=== PATIENT | female | born 2000 | race Caucasian/White ===

== ENCOUNTER → 2021-09-13 16:37 | Outpatient (CLI) | payer OTHER, SELFPAY ==
[2021-09-13 20:47] LABS: Urine N gonorrhoeae NOT DETECTED
[2021-09-13 21:09] LABS: Urine Chlamydia NOT DETECTED
== END ==
PROVIDERS: Visit Provider Obstetrics & Gynecology
DX: Z34.01 Encounter for supervision of normal first pregnancy, first trimester (principal)
CPT/HCPCS: 87491; 87591

== ENCOUNTER → 2021-11-26 11:55 | Outpatient (CLI) | payer OTHER, SELFPAY ==
--- NOTE | 2021-11-26 11:56 | DI.US.S_ITS ---
PROCEDURE: US OB >= 14 WEEKS FETUS INDICATIONS: Anatomy Scan OUTSIDE/PRIOR DATING DATA: Last menstrual period (LMP): 07/12/2021 LMP-based estimated date of delivery (LAURENCE): 04/18/2022. First dating scan (date and location): 09/13/2021. Estimated date of delivery (LAURENCE) from first dating scan: 04/16/2022. The calculations are made using the ultrasound LAURENCE of 04/16/2022. TECHNIQUE: Real-time scanning was performed of the fetus, with image documentation and biometric measurements. COMPARISON: [facility], , US OB <= 14 WEEKS FETUS, 09/13/2021, 16:39. FINDINGS: General: A single living intrauterine gestation is present. Presentation: Vertex. Placenta: Placental position is posterior , without previa. Amniotic fluid index: 11.2 cm, normal range is 5-24 cm. heart rate: 147 beats per minute. Maternal cervical canal: 3.2 cm long. Normal lower limit is 2.5 cm. biometrics: Biparietal diameter: 21 weeks 2 days Head circumference: 20 weeks 2 day Abdominal circumference: 20 weeks 5 days Femur length: 20 weeks 1 day Clinically estimated gestational age: 19 weeks 6 days Composite gestational age from present scan: 20 weeks 4 days Estimated weight and percentile: 356 g; 80th percentile Anatomic survey: Neuro: Ventricles are non-dilated at less than 10 mm. Cisterna magna is normal at 3-11 mm. Cerebellum is normal in size and morphology. Nuchal skin fold: Normal at less than 6 mm between 14-21 weeks gestational age. Face: Suboptimally visualized. Spine: No evidence for spina bifida. Heart: 4-chambered heart is present, with normal ventricular outflow tracts. Diaphragm: Diaphragm is intact. Stomach: Left-sided stomach is present. Kidneys: No hydronephrosis. Normal is less than 5 mm in 2nd trimester, less than 7 mm in 3rd trimester. Cord: 3-vessel cord has orthotopic insertion. Bladder: Normal in size. Extremities: All 4 extremities identified. IMPRESSION: 1. Single living IUP redemonstrated and interval growth is normal. 2. face suboptimally visualized; otherwise normal anatomic survey. We strive to produce accurate, complete, and clear reports of imaging services. To assist us in improving patient care, this report was composed using standard report templates and voice recognition software. Therefore, it may contain abnormal punctuation, insertions and/or omissions. Occasional wrong-word or sound-alike substitutions may occur. Though we review the report and make efforts to correct it, we do recommend that the report be read carefully in proper context to recognize any text inaccuracies. Dictated by: Ricci PURI Interpreted: April Chavez MD on 11/26/2021 at 13:52 Transcribed by: ELIANA on 11/26/2021 at 13:57 Approved by: April Chavez M.D. on 11/26/2021 at 15:19
== END ==
PROVIDERS: Referring Provider Obstetrics & Gynecology; Visit Provider Obstetrics & Gynecology
DX: Z36.89 Encounter for other specified antenatal screening (principal); Z3A.20 20 weeks gestation of pregnancy
CPT/HCPCS: 76811

== ENCOUNTER → 2021-12-25 12:33 | Outpatient (CLI) | payer OTHER, SELFPAY ==
--- NOTE | 2021-12-25 12:35 | DI.US.S_ITS ---
PROCEDURE: US OB LIMITED INDICATIONS: RE-EVALUATE FACIAL STRUCTURES OUTSIDE/PRIOR DATING DATA: Last menstrual period (LMP): 07/12/2021 LMP-based estimated date of delivery (LAURENCE): 04/18/2022 First dating scan (date and location): 09/13/2021 Estimated date of delivery (LAURENCE) from first dating scan: 04/16/2022 TECHNIQUE: Real-time scanning was performed of the fetus, with image documentation. Endovaginal scanning: Not performed COMPARISON: 11/26/2021 FINDINGS: A single living intrauterine gestation is present. Presentation: Vertex Placenta: Posterior Amniotic fluid index: 15.5 centimeters heart rate: 149 beats per minute Maternal cervical canal: 3.2 centimeters Clinically estimated gestational age: 24 weeks Nose/lips, orbits are well seen. Profile view remains suboptimal due to positioning. IMPRESSION: Profile view remains suboptimally seen due to positioning. Nose/lips and orbits appear normal. Living intrauterine gestation at 24 weeks of gestational age based on prior dating. Dictated by: Mark Godfrey M.D. on 12/25/2021 at 13:42 Approved by: Mark Godfrey M.D. on 12/25/2021 at 13:45
== END ==
PROVIDERS: Referring Provider Obstetrics & Gynecology; Visit Provider Obstetrics & Gynecology
DX: Z36.2 Encounter for other antenatal screening follow-up (principal); Z3A.24 24 weeks gestation of pregnancy
CPT/HCPCS: 76815

== ENCOUNTER 2022-01-09 17:48 | Outpatient (CLI) | payer OTHER, SELFPAY ==
--- NOTE | 2022-01-09 18:28 | DI.US.S_ITS ---
PROCEDURE: US OB LIMITED INDICATIONS: cervical lenth OUTSIDE/PRIOR DATING DATA: Last menstrual period (LMP): July 12, 2021. LMP-based estimated date of delivery (LAURENCE): April 18, 2022. First dating scan (date and location): September 13, 2021. Estimated date of delivery (LAURENCE) from first dating scan: April 16, 2022. TECHNIQUE: Real-time scanning was performed of the fetus, with image documentation. Endovaginal scanning: Performed for measurement of cervical canal length COMPARISON: [facility], OB LIMITED, 12/25/2021, 13:06. FINDINGS: A single living intrauterine gestation is present. Presentation: Cephalic. Placenta: Placental position is posterior, without previa. Amniotic fluid index: 11.9 cm, normal range is 5-24 cm. Single deepest vertical pocket is 3.9 cm. heart rate: 153 beats per minute. Maternal cervical canal: 3.9 cm long. Normal lower limit is 2.5 cm. Maternal cervical length was measured endovaginally. Clinically estimated gestational age: 26 weeks and 1 day IMPRESSION: Single living intrauterine gestation with estimated gestational age of approximately 26 weeks and 1 day. Maternal cervical length measures 3.9 cm (endovaginal measurement) Four-quadrant VINEET measuring 11.9 cm with largest vertical pocket measuring 3.9 cm. Dictated by: Mateo Owens M.D. on 01/09/2022 at 19:12 Approved by: Mateo Owens M.D. on 01/09/2022 at 19:14
--- NOTE | 2022-01-09 19:09 | PM.OBTRLD ---
Visit Information Visit Information Date of evaluation: 01/09/22 Primary OB Provider: Lois Ojeda On-call OB Provider: Lois Ojeda Reason for Evaluation: Yes other Comments/Additional reasons for admission: 21 yo G1 brought in at 25wk6d due to persistent cramping after intercourse earlier today. She hydrated and rested, but cramping has persisted. She reports severe cramping starting about 1/2 hour after intercourse. Cramping was much more than usual which concerned her from the start. she rated the discomfort as going as high as 7 on a pain scale of 10. Cramping persisted despite hydrating and getting off her feet For 2 hours. She was brought in for evaluation. She denies any leakage of fluid or vaginal bleeding. No recent illness. No urinary symptoms. She reported feeling a little dizzy today, clarifies just off balance, no lightheadedness or room spinning. No noted fever. [facility] Medical History (Updated 10/11/21 @ 12:31 by Rosita Alvarado PA-C) Acne (~2011) Allergies (~2000) Anemia (~2013) Anxiety (~2013) Asthma (~2000) Autism (~2000) Celiac disease (~2017) Chronic back pain (~2012) COVID-19 Frequent UTI (~2016) Generalized hypermobility of joints Heavy menstrual period (~2014) Kidney stones (~2020) Knee dislocation (~2013) Microcytic hypochromic anemia Migraines (~2014) PTSD (post-traumatic stress disorder) (~2017) Tourette's disease (~2004) Velopharyngeal insufficiency (~2020) Surgical History (Updated 10/10/21 @ 22:57 by Nidhi Cordova) Anesthesia complication History of endoscopy (~2018) History of knee surgery (~03/2021) History of tonsillectomy (~2020) [place] teeth extracted (~2015) Family History (Updated 10/10/21 @ 22:59 by Nidhi Cordova) Grandfather Prostate cancer Grandmother Diabetes mellitus Hypertension Mental health problem Father Hypertension History of heart disease Family/Other Down syndrome Social History marital status: number of children: 0 household members: spouse lives independently: Yes housing: apartment pets and animals: Yes (1 cat, managing litter box) education level: college (some college) occupational status: employed current occupational exposures/hazards: No special sandip needs: No travel history: over 6 months ago seatbelt use: always helmet use: Yes water heater temp set < 120 deg: Yes working smoke detector in home: Yes fire extinguisher in home: Yes carbon monox detector in home: Yes firearms in home: Yes firearms unloaded and locked: Yes do you feel safe at home: Yes Smoking Status: Never smoker second hand exposure: No alcohol intake: never substance use type: marijuana (previously used topical THC cream for pain, no longer using) during the past year weight has: other (major fluctuations, max 180, min 100) well-balanced diet: daily or most days daily servings fruits/ve-4 caffeine: No (Quit recently) Type(s) of exercise: walking Objective Imaging US transvaginal: Radiologist's impression: PROCEDURE:? US OB LIMITED ? INDICATIONS:? cervical lenth ? OUTSIDE/PRIOR DATING DATA:? Last menstrual period (LMP):? July 12, 2021.? LMP-based estimated date of delivery (LAURENCE):? April 18, 2022.? First dating scan (date and location):? September 13, 2021.? Estimated date of delivery (LAURENCE) from first dating scan:? April 16, 2022. ? TECHNIQUE: Real-time scanning was performed of the fetus, with image documentation.? Endovaginal scanning:? Performed for measurement of cervical canal length ? COMPARISON:? [facility], OB LIMITED, 12/25/2021, 13:06. ? FINDINGS:? A single living intrauterine gestation is present.? Presentation:? Cephalic.? Placenta:? Placental position is posterior, without previa.? ? Amniotic fluid index:? 11.9 cm, normal range is 5-24 cm. Single deepest vertical pocket is 3.9 cm.? ? heart rate:? 153 beats per minute.? Maternal cervical canal:? 3.9 cm long.? Normal lower limit is 2.5 cm.? Maternal cervical length was measured endovaginally.? Clinically estimated gestational age:? 26 weeks and 1 day ? IMPRESSION:? ? Single living intrauterine gestation with estimated gestational age of approximately 26 weeks and 1 day. ? Maternal cervical length measures 3.9 cm (endovaginal measurement) ? Four-quadrant VINEET measuring 11.9 cm with largest vertical pocket measuring 3.9 cm. Labs Labs: Urinalysis completely negative. specific gravity 1.020 Evaluation Evaluation Baseline heart rate: 145 Variability: Average (6-10) monitor accelerations: Present Monitor Decelerations: Absent Contraction Frequency (minutes): 2 Comments: Low grade uterine irritability every 1 1/2-3 minutes Diagnosis, Plan/Disposition Plan/Disposition Plan: frequent low-grade contractions noted. Cervical length ordered which was 3.9 cm. Urinalysis is negative. COVID screen performed since temp 37.3, higher for the patient and nurse thought patient reported feeling somewhat unwell. COVID screen is negative. She reports dizzy feeling today, otherwise does not feel ill. Her crampiness has decreased since arrival to minimal. With no cervical foreign exchange trader past 6 hours since cramping has started and reassuring cervical length, will discharge with instructions to return if severe cramping returns. Recommended no further intercourse at this time since it triggered significant cramping for her with noted low-grade contractions on the monitor. OB Disposition: home
[2022-01-09 19:21] LABS: Appearance Urine UA CLEAR; Bilirubin Urine UA NEGATIVE (NEGATIVE); Color Urine UA YELLOW; Glucose Urine UA NEGATIVE (Negative); Ketones Urine UA NEGATIVE (NEGATIVE); Leukocyte Esterase Urine UA NEGATIVE (NEGATIVE); Nitrite Urine UA NEGATIVE (Negative); Occult Blood Urine UA NEGATIVE (Negative); Protein Urine UA NEGATIVE (Negative); Urobilinogen Urine UA 0.2 E.U./dL (0.2)
[2022-01-09 19:22] LABS: pH Urine UA 6.5 (4.5-8.0)
[2022-01-09 19:28] LABS: Bacteria Urine None Seen; Culture Indicated Urine Cult Not Indicated; RBC Urine 0-1/HPF (0-5/HPF); Squamous Epithelial Cell Urine 0-1 /HPF (0-5/HPF); WBC Urine 0-1/HPF (0-5/HPF)
[2022-01-09 19:42] LABS: COVID19 -Nasal RAPID Negative (Negative)
== END 2022-01-09 20:06 | disposition home or self-care (01) ==
LOC: LABOR 17:50 → OB 01-11 08:30
PROVIDERS: Referring Provider Obstetrics & Gynecology; Visit Provider Obstetrics & Gynecology
DX: O47.02 False labor before 37 completed weeks of gestation, second trimester (principal); Z3A.25 25 weeks gestation of pregnancy; Z20.822 Contact with and (suspected) exposure to COVID-19
CPT/HCPCS: 59025; 59050; 76815; 76817; 81001; 87635; C9803; G0378; G0379

== ENCOUNTER → 2022-01-24 13:20 | Outpatient (CLI) | payer OTHER, SELFPAY ==
[2022-01-24 15:06] LABS: Hematocrit 30.9 % (36-46); Hemoglobin 10.3 g/dL (12.0-16.0)
[2022-01-24 15:23] LABS: GTT (PREG) 1 Hour PP 50gm Dose 83 mg/dL (76-139)
[2022-01-24 16:01] LABS: Hepatitis B Surface Antigen NEGATIVE s/c (NEGATIVE)
== END ==
PROVIDERS: Physician Assistant Medical; Referring Provider Obstetrics & Gynecology; Visit Provider Obstetrics & Gynecology
DX: Z34.02 Encounter for supervision of normal first pregnancy, second trimester (principal); Z3A.26 26 weeks gestation of pregnancy
CPT/HCPCS: 36415; 82950; 85014; 85018; 86850; 87340

== ENCOUNTER → 2022-03-20 14:34 | Outpatient (CLI) | payer OTHER, SELFPAY ==
[2022-03-21 15:03] LABS: Strep Grp B PCR NEG for Grp B Strep
== END ==
PROVIDERS: Visit Provider Obstetrics & Gynecology
DX: Z34.03 Encounter for supervision of normal first pregnancy, third trimester (principal); Z3A.35 35 weeks gestation of pregnancy
CPT/HCPCS: 87653

== ENCOUNTER 2022-04-08 12:08 | Outpatient (CLI) | payer OTHER, SELFPAY ==
--- NOTE | 2022-04-08 13:46 | P.TNLD_ITS ---
Visit Information Visit Information Date of evaluation: 04/08/22 Primary OB Provider: Samuel Evans On-call OB Provider: Lois Ojeda Reason for Evaluation: Yes other Comments/Additional reasons for admission: Evaluate for possible rupture of membranes 21 yo G1 female Presents at 38 weeks 4 days reporting some leakage of fluid this morning. Around 0730 she reports some watery fluid running down her legs, about 2 tbsp full. More a thin continence pad on her way to hospital which does have a wet area. She has not felt any further leaking through the vagina however. Feeling occasional contractions, nothing regular persistent. She is feeling increased vaginal pressure today. Denies vaginal bleeding. Vital Signs Vital Signs: Temp 36.6C BP 119/59. Pulse 71 PFSH Medical History (Updated 04/04/22 @ 12:45 by Samuel Evans MD) Acne (~2011) Allergies (~2000) Anemia (~2013) Anxiety (~2013) Asthma (~2000) Autism (~2000) Celiac disease (~2017) Chronic back pain (~2012) COVID-19 Frequent UTI (~2016) Generalized hypermobility of joints Heavy menstrual period (~2014) Kidney stones (~2020) Knee dislocation (~2013) Microcytic hypochromic anemia Migraines (~2014) PTSD (post-traumatic stress disorder) (~2017) Tourette's disease (~2004) Velopharyngeal insufficiency (~2020) Surgical History (Updated 10/10/21 @ 22:57 by Nidhi Cordova) Anesthesia complication History of endoscopy (~2018) History of knee surgery (~03/2021) History of tonsillectomy (~2020) [place] teeth extracted (~2015) Family History (Updated 10/10/21 @ 22:59 by Nidhi Cordova) Grandfather Prostate cancer Grandmother Diabetes mellitus Hypertension Mental health problem Father Hypertension History of heart disease Family/Other Down syndrome Social History marital status: number of children: 0 household members: spouse lives independently: Yes housing: apartment pets and animals: Yes (1 cat, managing litter box) education level: college (some college) occupational status: employed current occupational exposures/hazards: No special sandip needs: No travel history: over 6 months ago seatbelt use: always helmet use: Yes water heater temp set < 120 deg: Yes working smoke detector in home: Yes fire extinguisher in home: Yes carbon monox detector in home: Yes firearms in home: Yes firearms unloaded and locked: Yes do you feel safe at home: Yes Smoking Status: Never smoker second hand exposure: No alcohol intake: never substance use type: marijuana (previously used topical THC cream for pain, no longer using) during the past year weight has: other (major fluctuations, max 180, min 100) well-balanced diet: daily or most days daily servings fruits/ve-4 caffeine: No (Quit recently) Type(s) of exercise: walking Evaluation Evaluation Baseline heart rate: 135 Variability: Moderate (11-25) monitor accelerations: Absent Monitor Decelerations: Absent Uterine Contraction Intensity: Mild Category of Tracing: Reactive Status: Category l Cervical dilation (cm): 0 Cervical effacement (%): 0 Non-invasive Membranes Rupture Test: negative Comments: SSE small amount watery white discharge, no noted amniotic fluid. Negative fern test. Nitrazine test deferred with recent intercourse (48 hours ago) Irregular contractions every few minutes, then infrequent. Diagnosis, Plan/Disposition Plan/Disposition Plan: 38+ weeks with small amount of possible LOF twice. AmniSure negative. SSe performed as well since area on her small pad did appear watery. SSE was negative for Pooling of fluid and ferning. advised to consider staying in the area for a few hours, going shopping or to lunch and make sure she does not have any recurrence of any possible leakage of fluid before traveling back to the [place]. She is not feeling any uncomfortable contractions currently, only feeling some mild irregular contractions. Also advised her to consider staying in [place] soon, until delivery OB Disposition: home
== END 2022-04-08 13:55 | disposition home or self-care (01) ==
LOC: LABOR 12:58 → OB 04-11 16:10
PROVIDERS: Referring Provider Obstetrics & Gynecology; Visit Provider Obstetrics & Gynecology
DX: Z03.71 Encounter for suspected problem with amniotic cavity and membrane ruled out (principal); Z3A.38 38 weeks gestation of pregnancy
CPT/HCPCS: 59025; 59050; 84112; G0378; G0379

== ENCOUNTER 2022-04-11 13:39 | Outpatient (CLI) | payer OTHER, SELFPAY | END 2022-04-11 14:58 | disposition home or self-care (01) | LOC: OB 04-18 12:26 | PROVIDERS: Referring Provider Obstetrics & Gynecology; Visit Provider Obstetrics & Gynecology | DX: Z03.71 Encounter for suspected problem with amniotic cavity and membrane ruled out (principal); O47.1 False labor at or after 37 completed weeks of gestation; Z3A.39 39 weeks gestation of pregnancy | CPT/HCPCS: 59025; G0378; G0379 ==

== ENCOUNTER 2022-04-14 15:20 | Observation (INO) | payer OTHER, SELFPAY | END 2022-04-14 16:40 | disposition home or self-care (01) | PROVIDERS: Admitting Provider Obstetrics & Gynecology; Referring Provider Obstetrics & Gynecology; Visit Provider Obstetrics & Gynecology | DX: Z03.71 Encounter for suspected problem with amniotic cavity and membrane ruled out (principal); O47.1 False labor at or after 37 completed weeks of gestation; Z3A.39 39 weeks gestation of pregnancy | CPT/HCPCS: 59025; 84112; G0378; G0379 ==

== ENCOUNTER 2022-04-14 21:08 | Inpatient (IN) | payer OTHER, SELFPAY ==
[2022-04-14 21:56] LABS: Add Manual Diff / Slide Review NO; Basophils Absolute Auto 100 /uL (0-100); Basophils Percent Auto 0.8 % (0-2); Eosinophils Absolute Auto 100 /uL (0-450); Eosinophils Percent Auto 1.5 % (2-4); Hematocrit 34.2 % (36-46); Hemoglobin 10.6 g/dL (12.0-16.0); Lymphocytes Absolute Auto 1900 /uL (1100-4500); Lymphocytes Percent Auto 20.3 % (25-40); Mean Corpuscular HGB Conc 31.1 % (30-36); Mean Corpuscular Hemoglobin 21.3 PG (26-34); Mean Corpuscular Volume 68.7 fL (80-100); Monocytes Absolute Auto 700 /uL (0-900); Monocytes Percent Auto 7.5 % (3-14); Neutrophils Absolute Auto 6700 /uL (1500-7000); Neutrophils Percent Auto 69.9 % (50-75); Platelet Count 285 X10^3/uL (150-400); Red Blood Cell Count 4.98 X10^6/uL (4.0-5.2); Red Cell Distribution Width 17.7 % (11.6-14.8); White Blood Cell Count 9.6 X10^3/uL (4.5-11.0)
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
[2022-04-14 22:08] LABS: COVID19 -Nasal RAPID Negative (Negative)
--- NOTE | 2022-04-14 22:18 | P.HP_ITS ---
History of Present Illness History of Present Illness Chief complaint: Labor Narrative: Pt had ctx all day. Thought she had ROM 0400 but was amnisure neg this afternoon. Changed from 2 cm to 4 cm today (afternoon to evening). Ctx now regular, frequent and rated 7-8/10 by patient Patient History Medical History Acne (~2011) Allergies (~2000) Anemia (~2013) Anxiety (~2013) Asthma (~2000) Autism (~2000) Celiac disease (~2017) Chronic back pain (~2012) COVID-19 Frequent UTI (~2016) Generalized hypermobility of joints Heavy menstrual period (~2014) Kidney stones (~2020) Knee dislocation (~2013) Microcytic hypochromic anemia Migraines (~2014) PTSD (post-traumatic stress disorder) (~2017) Tourette's disease (~2004) Velopharyngeal insufficiency (~2020) Surgical History Anesthesia complication History of endoscopy (~2018) History of knee surgery (~03/2021) History of tonsillectomy (~2020) [place] teeth extracted (~2015) Family & Social History Family History Grandfather Prostate cancer Grandmother Diabetes mellitus Hypertension Mental health problem Father Hypertension History of heart disease Family/Other Down syndrome Social History: household members spouse lives independently Yes Tobacco & Substance use: Smoking Status Never smoker alcohol intake never Meds Home Medications and Allergies Home Medications Medication Instructions Recorded Confirmed Type Lactobacillus 1 cap PO DAILY 09/06/21 04/04/22 History acidophil,plantar-Bifido no.7 25 billion cell capsule (up4 Probiotics Adult 50 Plus) cholecalciferol (vitamin D3) 50 100 mcg PO DAILY 09/06/21 04/04/22 History mcg (2,000 unit) capsule prenat.vits,arvind,kav-hepc-dgqro 1 tab PO DAILY 09/06/21 04/04/22 History ferrous sulfate 142 mg (45 mg 142 mg PO DAILY 01/24/22 04/04/22 History iron) tablet,extended release (Slow Fe) cvvqflxkzs-sfkhtrnsirumd-fqajoaxm 1 cap PO Q4-6H PRN headache #20 02/08/22 04/04/22 Rx 50 mg-300 mg-40 mg capsule caps (Fioricet) Allergies Allergy/AdvReac Type Severity Reaction Status Date / Time gluten AdvReac Severe Diarrhea Verified 04/11/22 11:25 ondansetron AdvReac Mild Nausea Verified 04/11/22 11:25 Objective Labs Result Diagrams: 04/14/22 21:35 Labs: Laboratory Results - last 24 hr 04/14/22 04/14/22 21:25 21:35 WBC 9.6 RBC 4.98 Hgb 10.6 L Hct 34.2 L MCV 68.7 L MCH 21.3 L MCHC 31.1 RDW 17.7 H Plt Count 285 Neut % (Auto) 69.9 Lymph % (Auto) 20.3 L [place] % (Auto) 7.5 Eos % (Auto) 1.5 L Baso % (Auto) 0.8 Neut # (Auto) 6700 Lymph # (Auto) 1900 [place] # (Auto) 700 Eos # (Auto) 100 Baso # (Auto) 100 SARS-CoV-2 (PCR) Negative BT - O pos Rub - Imm RPR - neg HIV - neg HCV - neg Varicella - Imm Assessment & Plan Time Spent With Patient Critical Care time: I spent a total of [] minutes of critical care time on this patient's care today; this time is exclusive of procedural time.
[2022-04-14 22:34] LABS: Anisocytosis 2+
[2022-04-14 22:35] LABS: Microcytosis 2+; Ovalocytes 1+
[2022-04-14] MEDS: LACTATED RINGERS 1,000 ML 100 ML IV (22:41)
--- NOTE | 2022-04-15 01:31 | PM.OBPNLAB ---
Date/Time Date Patient Seen: 04/15/22 Time Patient Seen: 01:32 Pain Control Pain control: epidural (working well ) Comments: Pt sleeping Pelvic Exam Comments: deferred Contractions Contraction pattern: Regular (q 5 min, palpate moderate) Contraction intensity: Moderate Status status: Category l Assessment and Plan Assessment: active labor Plan: continuous present management
--- NOTE | 2022-04-15 04:02 | PM.OBPNLAB ---
Date/Time Date Patient Seen: 04/15/22 Time Patient Seen: 04:02 Pain Control Pain control: epidural Pelvic Exam Dilation (cm): 7 Effacement (%): 90 station: 0 Amniotic membrane status: Intact Comments: Per RN at 0230 Contractions Contraction frequency (min): 3 Contraction pattern: Regular (q 5 min, palpate moderate) Contraction intensity: Moderate Status status: Category l Assessment and Plan Assessment: active labor Comments: Spontaneous labor at term Good progress Reassuring tracing Anticipate
[2022-04-15] MEDS: FENT 2MCG/ML BUPIV 0.125% EPI 200 MCG/100 ML PLAST..BAG 8 MCG EPIDURAL (05:59)
[2022-04-15] MEDS: LACTATED RINGERS 1,000 ML 100 ML IV (05:59)
--- NOTE | 2022-04-15 06:39 | PM.OBPNLAB ---
Date/Time Date Patient Seen: 04/15/22 Time Patient Seen: 06:39 Pain Control Pain control: epidural (- breathing through ctx -- just rebolused per anesthesia) Pelvic Exam Dilation (cm): 9 Effacement (%): 100 station: 0 Amniotic membrane status: Bulging Contractions Contraction frequency (min): 2 Contraction pattern: Regular (q 5 min, palpate moderate) Contraction intensity: Moderate Status status: Category l Assessment and Plan Assessment: active labor (Good progress. Membranes intact. Tracing reassuring ) Plan: continuous present management (AROM when more comfortble. Consider laboring down. Anticipate . )
[2022-04-15] MEDS: FENT 2MCG/ML BUPIV 0.125% EPI 200 MCG/100 ML PLAST..BAG 9 MCG EPIDURAL (07:08)
--- NOTE | 2022-04-15 09:42 | PM.OBPNLAB ---
Date/Time Date Patient Seen: 04/15/22 Time Patient Seen: 07:40 Pain Control Pain control: epidural (Patient feeling more painful contractions and pressure) Pelvic Exam Dilation (cm): 9 Effacement (%): 100 station: 0 Amniotic membrane status: Bulging Contractions Contractions on admission: regular Monitor mode: External Contraction frequency (min): 3 Contraction pattern: Regular (q 5 min, palpate moderate) Contraction intensity: Strong/Firm Status status: Category l Heart Rate Baseline: 135 Monitor Accelerations: Present Monitor Decelerations: Absent Monitor Variability: Moderate Assessment and Plan Assessment: active labor Comments: AROM with clear amniotic fluid Epidural bolus Expected management to spontaneous vaginal delivery
--- NOTE | 2022-04-15 13:59 | P.PCNOB_ITS ---
Labor & Delivery Delivery date: 04/15/22 Intrapartal Events: Prolonged 2nd Stage > 2.5 hours Cervical ripening method: none Induction method: none Delivery augmentation: rupture of membranes Delivery monitor: external FHT and external uterine Route of delivery: vacuum extraction Indication for instrumentation: maternal exhaustion (Mother coming undone after 3 hours of pushing) Episiotomy description: Right Mediolateral L&D Laceration Description: Vaginal - 2nd Degree and Labial (First-degree left labia minora) Delivery repair: vicryl and chromic Quantitative Blood Loss: 400 Anesthesia Type: Epidural and Local (For repair) Complications: None [place] Baby 1: gender: Male Presentation: vertex Position: Right Occiput Anterior Placenta delivery description: Spontaneous Cord Vessel Description: 3 Vessels and Clamped/Cut (After the cord stopped pulsing) score (1 min): 8 score (5 min): 9 weight: 10 lb 11 oz Narrative: Patient complete and pushed for 3 hours. At 1:23 p.m., a live male infant delivered with vacuum assistance over a right mediolateral episiotomy. Vacuum was applied due to maternal exhaustion after 3 hours of pushing. The remainder of the body delivered without difficulty and was placed on mom's abdomen. Pitocin was given in the IV fluids. The cord was double clamped and cut after stopped pulsing. Cord bloods were obtained. The placenta delivered intact with a three-vessel cord at 1:30 p.m.. The fundus was massaged to firm. A left labia minora laceration was repaired with 3-0 chromic. A second-degree vaginal laceration was repaired with 2-0 Vicryl. The right mediolateral episiotomy was closed with 2 0 Vicryl deep, and 2-0 chromic on the skin. Estimated blood loss 400 cc. Apgars 8 at 1 minute and 9 at 5 minutes. Weight 10 lb 13 oz. . Epidural analgesia. Local anesthesia for the repair. Mom and stable to recovery. Plan for aftercare: Routine care
[2022-04-15] MEDS: IBUPROFEN 600 MG TABLET PO ×2 (15:46→21:54)
[2022-04-15] MEDS: ACETAMINOPHEN 325 MG TABLET 650 MG PO ×2 (15:47→21:55)
[2022-04-15] MEDS: LANOLIN OINT 7 GM 1 APPLIC TOP (21:58)
[2022-04-16] MEDS: ACETAMINOPHEN 325 MG TABLET 650 MG PO ×4 (04:05→23:54)
[2022-04-16] MEDS: IBUPROFEN 600 MG TABLET PO ×4 (04:06→23:54)
[2022-04-16 06:02] LABS: Hematocrit 24.3 % (36-46); Hemoglobin 7.6 g/dL (12.0-16.0)
[2022-04-16] MEDS: DOCUSATE 100 MG CAPSULE PO (08:41)
[2022-04-16] MEDS: PRENATAL VIT,CALC/IRON/FOLIC 1 TABLET 1 TAB PO (08:41)
[2022-04-16] MEDS: ESCITALOPRAM 10 MG TABLET 5 MG PO (11:30)
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
[2022-04-17] MEDS: ACETAMINOPHEN 325 MG TABLET 650 MG PO ×2 (05:49→11:03)
[2022-04-17] MEDS: IBUPROFEN 600 MG TABLET PO ×2 (05:49→11:02)
[2022-04-17] MEDS: IRON SUCROSE 200 MG in SODIUM CHLORIDE 0.9% 100 ML 220 MG IV (09:39)
[2022-04-17] MEDS: DOCUSATE 100 MG CAPSULE PO (09:39)
[2022-04-17] MEDS: PRENATAL VIT,CALC/IRON/FOLIC 1 TABLET 1 TAB PO (09:39)
[2022-04-17] MEDS: ESCITALOPRAM 10 MG TABLET 5 MG PO (09:39)
== END 2022-04-17 11:35 | disposition home or self-care (01) | DRG 806 ==
PROVIDERS: Obstetrics & Gynecology; Admitting Provider Obstetrics & Gynecology; Referring Provider Obstetrics & Gynecology; Visit Provider Obstetrics & Gynecology
DX: O63.1 Prolonged second stage (of labor) (principal); O47.1 False labor at or after 37 completed weeks of gestation; Z37.0 Single live birth; Z3A.39 39 weeks gestation of pregnancy; O75.81 Maternal exhaustion complicating labor and delivery; D50.9 Iron deficiency anemia, unspecified; Z20.822 Contact with and (suspected) exposure to COVID-19; Z03.71 Encounter for suspected problem with amniotic cavity and membrane ruled out
CPT/HCPCS: 36415; 59025; 59050; 59400; 59409; 84112; 85014; 85018; 85025; 86850; 86900; 86901; 87635; C9803; G0378; G0379; J1756